=== PATIENT | female | born 1990 ===

== ENCOUNTER 2016-06-28 12:44 | Emergency (ER) | payer OTHER ==
[2016-06-28 12:44] VITALS: BMI 27.9
[2016-06-28 12:56] VITALS: BP 123/66; PULSE 96; RESP 18; TEMP 98; O2SAT 99
--- NOTE | 2016-06-28 13:28 | ED PDOC ---
HPI: General Adult Time Seen by Provider: 06/28/16 13:02 Chief Complaint (Nursing): Flu-like Symptoms Chief Complaint (Provider): Flu-like Symptoms History Per: Patient History/Exam Limitations: no limitations Onset/Duration Of Symptoms: Days (x3 days) Have you had recent travel within the past 21 days to any of the following countries: [place], [place], [place] or [place]?: No Current Symptoms Are (Timing): Still Present Severity: Moderate Additional Complaint(s): Geno Rivas is a 26 year old female, with a past medical history of pneumonia , who presents to the emergency department with complaints of flu-like symptoms , that the patient has been experiencing for the past 3 days. Associated nasal congestion, a cough, sore throat, bodyaches, chills, and a headache are currently present in which the patient has been taking Theraflu and Tylenol for ; however, it has been providing her no relief, prompting her visit to the emergency department. Denies shortness of breath, chest pain, nausea, vomiting, or diarrhea. Of note, patient's son is currently taking antibiotics for a throat infection. PMD: Clinic, Non [facility] Provider Past Medical History Reviewed: Historical Data, Nursing Documentation, Vital Signs Vital Signs: Last Vital Signs Temp 98.0 F 06/28/16 12:53 Pulse 96 H 06/28/16 12:53 Resp 18 06/28/16 12:53 BP 123/66 06/28/16 12:53 Pulse Ox 99 06/28/16 14:18 - Medical History PMH: Anxiety, Pneumonia Other PMH: Urinary Tract Infection - Surgical History Surgical History: (x2) Other surgeries: Tubal Ligation - Family History Family History: States: No Known Family Hx - Social History Alcohol: Occasional - Home Medications Home Medications: Ambulatory Orders Medication Instructions Recorded Ibuprofen [Motrin] 600 mg PO Q6 #20 tab 05/27/16 Benzonatate [Tessalon Perle] 100 mg PO Q8 PRN #30 capsule 06/28/16 Fluticasone Propionate [Flonase] 2 spr NS DAILY PRN #1 bottle 06/28/16 - Allergies Allergies/Adverse Reactions: Allergies Allergy/AdvReac Type Severity Reaction Status Date / Time No Known Allergies Allergy Verified 05/27/16 12:33 Review of Systems ROS Statement: Except As Marked, All Systems Reviewed And Found Negative Constitutional: Positive for: Fever, Chills, Malaise (myalgia, "body aches") ENT: Positive for: Nose Congestion, Throat Pain Cardiovascular: Negative for: Chest Pain Respiratory: Positive for: Cough. Negative for: Shortness of Breath Gastrointestinal: Negative for: Nausea, Vomiting, Diarrhea Neurological: Positive for: Headache Physical Exam - Reviewed Nursing Documentation Reviewed: Yes Vital Signs Reviewed: Yes - Physical Exam Appears: Positive for: Well, Non-toxic, No Acute Distress Head Exam: Positive for: ATRAUMATIC, NORMAL INSPECTION, NORMOCEPHALIC Skin: Positive for: Normal Color, Warm. Negative for: Rash Eye Exam: Positive for: EOMI, Normal appearance, PERRL ENT: Positive for: Nasal Congestion. Negative for: Sinus Pain/Drainage, Pharyngeal Erythema, Tonsillar Exudate, Tonsillar Swelling Respiratory: Positive for: Normal Breath Sounds. Negative for: Respiratory Distress Neurologic/Psych: Positive for: Alert, Oriented - ECG O2 Sat by Pulse Oximetry: 99 (RA) Pulse Ox Interpretation: Normal - Progress ED Course And Treament: Rapid strep: negative. Pt. instructed to do warm salt gargles and drink plenty of fluids. Medical Decision Making Medical Decision Makin:02 Initial Impression: URI vs. Strep Initial Plan: * Rapid Strep Group A Antigen * Reevaluation Scribe Attestation: Documented by Albert Pepper, acting as a scribe for OSMAN Mccord. Provider Scribe Attestation: All medical record entries made by the Scribe were at my direction and personally dictated by me. I have reviewed the chart and agree that the record accurately reflects my personal performance of the history, physical exam, medical decision making, and the department course for this patient. I have also personally directed, reviewed, and agree with the discharge instructions and disposition. Disposition - Clinical Impression Clinical Impression: URI (upper respiratory infection) - Patient ED Disposition Is Patient to be Admitted: No - Disposition Disposition: Routine/Home Disposition Time: 14:24 Condition: STABLE Prescriptions: Fluticasone Propionate [Flonase] 2 spr NS DAILY PRN #1 bottle PRN Reason: Allergy Symptoms Benzonatate [Tessalon Perle] 100 mg PO Q8 PRN #30 capsule PRN Reason: Cough Instructions: Upper Respiratory Infection (ED) Forms: [facility] ED School/Work Excuse
== END 2016-06-28 14:44 | disposition home or self-care (01) ==
LOC: H.ER 12:44
DX: J06.9 Acute upper respiratory infection, unspecified (principal); J02.9 Acute pharyngitis, unspecified; F41.9 Anxiety disorder, unspecified; R51 Headache

== ENCOUNTER 2016-07-02 08:45 | Emergency (ER) | payer OTHER ==
[2016-07-02 08:45] VITALS: BMI 27.9
[2016-07-02 08:50] VITALS: BP 104/67; PULSE 86; RESP 20; TEMP 97.9; O2SAT 97
--- NOTE | 2016-07-02 09:18 | ED PDOC ---
HPI: CCC, URI, Sore Throat Time Seen by Provider: 07/02/16 09:09 Chief Complaint (Nursing): Flu-like Symptoms Chief Complaint (Provider): cough History Per: Patient History/Exam Limitations: no limitations Onset/Duration Of Symptoms: Days (x1 week) Current Symptoms Are (Timing): Still Present Location Of Pain: Throat Associated Symptoms: Sore Throat, Cough, Nasal Congestion. denies: Sputum, Nausea, Vomiting, Diarrhea Severity: Mild Additional Complaint(s): Patient is a 26 year old female presents to the ED complaining of dry cough x1 week. Patient was in the ED x4 days ago and was diagnosed with URI and given Rx to go home with. Patient reports Tylenol and Rx did not provide relief. Cough is associated with congestion, body aches, rhinnorhea, sore throat, and frontal forehead pain with cough. Denies nausea, vomiting, diarrhea, and shortness of breath. Chest pain only on cough. No weakness, numbness, tingles. Of note: Patients last strep test was negative. Past Medical History Reviewed: Historical Data, Nursing Documentation, Vital Signs Vital Signs: Last Vital Signs Temp 97.9 F 07/02/16 08:49 Pulse 86 07/02/16 08:49 Resp 20 07/02/16 08:49 BP 104/67 07/02/16 08:49 Pulse Ox 97 07/02/16 09:27 - Medical History PMH: Anxiety, Pneumonia - Surgical History Surgical History: (x2) - Family History Family History: States: Unknown Family Hx - Living Arrangements Living Arrangements: With Family - Social History Current smoker - smoking cessation education provided: No Alcohol: None Drugs: Denies - Home Medications Home Medications: Ambulatory Orders Medication Instructions Recorded Ibuprofen [Motrin] 600 mg PO Q6 #20 tab 05/27/16 Benzonatate [Tessalon Perle] 100 mg PO Q8 PRN #30 capsule 06/28/16 Fluticasone Propionate [Flonase] 2 spr NS DAILY PRN #1 bottle 06/28/16 Azithromycin [Zithromax] 250 mg PO DAILY 5 Days 07/02/16 Ibuprofen [Motrin] 600 mg PO TID 7 Days 07/02/16 - Allergies Allergies/Adverse Reactions: Allergies Allergy/AdvReac Type Severity Reaction Status Date / Time No Known Allergies Allergy Verified 05/27/16 12:33 Review of Systems ROS Statement: Except As Marked, All Systems Reviewed And Found Negative Constitutional: Positive for: Other (body aches) ENT: Positive for: Nose Discharge, Nose Congestion, Throat Pain Cardiovascular: Positive for: Chest Pain. Negative for: Edema, Light Headedness Respiratory: Positive for: Cough. Negative for: Shortness of Breath, Sputum Gastrointestinal: Negative for: Nausea, Vomiting, Diarrhea Musculoskeletal: Positive for: Other (bodyaches) Neurological: Negative for: Weakness Physical Exam - Reviewed Nursing Documentation Reviewed: Yes Vital Signs Reviewed: Yes - Physical Exam Appears: Positive for: Well, Non-toxic, No Acute Distress Head Exam: Positive for: ATRAUMATIC, NORMAL INSPECTION, NORMOCEPHALIC Skin: Positive for: Normal Color, Warm, DRY Eye Exam: Positive for: Normal appearance, EOMI, PERRL ENT: Positive for: Nasal Congestion, Tonsillar Exudate (b/l), Other (no uvula deveation). Negative for: Pharyngeal Erythema Neck: Positive for: Normal, Painless ROM, Supple Cardiovascular/Chest: Positive for: Regular Rate, Rhythm. Negative for: Gallop , Murmur Respiratory: Positive for: Normal Breath Sounds. Negative for: Accessory Muscle Use, Rhonchi, Respiratory Distress Gastrointestinal/Abdominal: Positive for: Normal Exam, Bowel Sounds, Soft. Negative for: Tenderness Back: Positive for: Normal Inspection. Negative for: L CVA Tenderness, R CVA Tenderness Extremity: Positive for: Normal ROM. Negative for: Tenderness, Pedal Edema Neurologic/Psych: Positive for: Alert, Oriented - ECG O2 Sat by Pulse Oximetry: 97 (RA) Pulse Ox Interpretation: Normal - Progress ED Course And Treament: 917: Stable. AAOx3. Pain controlled. URI. Will give rx zpak as repeat visit and pt. with symptoms for 1 week. Pt. agree to fu. Tolerated PO. Medical Decision Making Medical Decision Making: Time: 9:10 Impression: 26 y/o w/ cough and congestion Plan: UPreg Motrin 600 mg PO Scribe Attestation: Documented by Smita Barrett acting as a scribe for Jimmy Skinner MD. Scribe Attestation: All medical record entries made by the Scribe were at my direction and personally dictated by me. I have reviewed the chart and agree that the record accurately reflects my personal performance of the history, physical exam, medical decision making, and the department course for this patient. I have also personally directed, reviewed, and agree with the discharge instructions and disposition. Disposition - Clinical Impression Clinical Impression: URI (upper respiratory infection) - Patient ED Disposition Is Patient to be Admitted: No Counseled Patient/Family Regarding: Diagnosis, Need For Followup, Rx Given - Disposition Referrals: [facility] [Outside] - 07/03/16 Disposition: Routine/Home Disposition Time: 09:19 Condition: STABLE Additional Instructions: Return if not better in 3 days. Prescriptions: Ibuprofen [Motrin] 600 mg PO TID 7 Days Azithromycin [Zithromax] 250 mg PO DAILY 5 Days Instructions: Upper Respiratory Infection (ED) Forms: [facility] ED School/Work Excuse
== END 2016-07-02 09:33 | disposition home or self-care (01) ==
LOC: H.ER 08:45
DX: J06.9 Acute upper respiratory infection, unspecified (principal); J02.9 Acute pharyngitis, unspecified

== ENCOUNTER 2016-11-25 15:19 | Emergency (ER) | payer OTHER ==
[2016-11-25 15:19] VITALS: BMI 27.9
[2016-11-25 16:01] VITALS: O2SAT 99
[2016-11-25] MEDS ORDERED: Sodium Chloride 0.9% 1,000 ML IV STA (16:03)
--- NOTE | 2016-11-25 16:23 | ED PDOC ---
HPI: Abdomen Time Seen by Provider: 11/25/16 16:03 Chief Complaint (Nursing): Back Pain Chief Complaint (Provider): dysuria, back pain History Per: Patient History/Exam Limitations: no limitations Onset/Duration Of Symptoms: Days (5), Gradual Current Symptoms Are (Timing): Still Present Severity: Moderate Location Of Pain/Discomfort: Suprapubic, Other (b/l flank) Quality Of Discomfort: Sharp Associated Symptoms: Nausea, Loss Of Appetite, Back Pain, Urinary Symptoms. denies: Vomiting Exacerbating Factors: None Alleviating Factors: None Last Bowel Movement: Today Additional Complaint(s): 26yo female states hisatory frequent UTIs, never formally worked up, now presents c/o dysuria associated w b/l flank pain, pelvic pain and chills ongoing and worsening for several days. Denies vaginal discharge. Last UTI several months ago. Abnormal Vaginal Bleeding: No Past Medical History Reviewed: Historical Data Vital Signs: Last Vital Signs Temp 98.1 F 11/25/16 15:59 Pulse 85 11/25/16 15:59 Resp 18 11/25/16 15:59 BP 103/67 11/25/16 15:59 Pulse Ox 99 11/25/16 18:54 - Medical History PMH: Anxiety, Pneumonia Other PMH: UTIs - Surgical History Surgical History: (x2) - Family History Family History: States: Unknown Family Hx - Living Arrangements Living Arrangements: With Family - Social History Current smoker - smoking cessation education provided: No Drugs: Denies - Home Medications Home Medications: Ambulatory Orders Medication Instructions Recorded Ibuprofen [Motrin] 600 mg PO Q6 #20 tab 05/27/16 Benzonatate [Tessalon Perle] 100 mg PO Q8 PRN #30 capsule 06/28/16 Fluticasone Propionate [Flonase] 2 spr NS DAILY PRN #1 bottle 06/28/16 Azithromycin [Zithromax] 250 mg PO DAILY 5 Days 07/02/16 Ibuprofen [Motrin] 600 mg PO TID 7 Days 07/02/16 Ciprofloxacin [Cipro] 500 mg PO BID #14 tab 11/25/16 Naproxen [Naprosyn] 500 mg PO BID PRN #14 tablet 11/25/16 Phenazopyridine HCl [Pyridium] 100 mg PO BID #6 tab 11/25/16 - Allergies Allergies/Adverse Reactions: Allergies Allergy/AdvReac Type Severity Reaction Status Date / Time No Known Allergies Allergy Verified 05/27/16 12:33 Review of Systems ROS Statement: Except As Marked, All Systems Reviewed And Found Negative Constitutional: Positive for: Chills. Negative for: Fever, Malaise Respiratory: Negative for: Cough, Shortness of Breath Gastrointestinal: Positive for: Nausea. Negative for: Vomiting, Abdominal Pain Genitourinary Female: Positive for: Dysuria, Hematuria, Pelvic Pain. Negative for: Vaginal Discharge, Vaginal Bleeding Musculoskeletal: Positive for: Back Pain. Negative for: Neck Pain, Shoulder Pain Skin: Negative for: Rash, Lesions, Jaundice Neurological: Positive for: Dizziness. Negative for: Weakness, Numbness, Headache Psych: Negative for: Anxiety Physical Exam - Reviewed Nursing Documentation Reviewed: Yes Vital Signs Reviewed: Yes - Physical Exam Appears: Positive for: Well, Non-toxic, No Acute Distress Head Exam: Positive for: ATRAUMATIC, NORMAL INSPECTION, NORMOCEPHALIC Skin: Positive for: Normal Color, Warm, DRY Eye Exam: Positive for: EOMI, Normal appearance, PERRL ENT: Positive for: Normal ENT Inspection Neck: Positive for: Normal, Painless ROM Cardiovascular/Chest: Positive for: Regular Rate, Rhythm Respiratory: Positive for: CNT, Normal Breath Sounds Gastrointestinal/Abdominal: Positive for: Bowel Sounds, Soft. Negative for: Tenderness, Guarding Back: Positive for: L CVA Tenderness (L>R), R CVA Tenderness. Negative for: Vertebral Tenderness Extremity: Positive for: Normal ROM Neurologic/Psych: Positive for: Alert, Oriented. Negative for: Motor/Sensory Deficits - Laboratory Results Result Diagrams: 11/25/16 16:20 11/25/16 16:20 - ECG O2 Sat by Pulse Oximetry: 99 Pulse Ox Interpretation: Normal Medical Decision Making Medical Decision Making: Workup initiated for r/o pyelonephritis vs renal colic vs vs PID vs other. IVF, bloodwork, UA, UCx ordered. CT abd/pelv w IV contrast ordered. labs reviewed, no clinically significant findings Imaging reviewed: Accession No. : [id number] Patient Name / ID : BRANDON AUSTIN / [id number] Exam Date : 11/25/2016 18:08:47 ( Approved ) Study Comment : Sex / Age : F / 26Y Creator : Dede Gillespie Dictator : Dede Gillespie Risk Control Representative : Sheet Music Salesperson : Dede Gillespie Approver2 : Report Date : 11/25/2016 18:36:10 My Comment : PROCEDURE: CT Abdomen and Pelvis with contrast HISTORY: flank pain, hematuria, dysuria, r/o pyelo COMPARISON: None. TECHNIQUE: Contrast dose: 95 mL of Omnipaque 300. Axial and reformatted coronal and sagittal CT images of the abdomen and pelvis were obtained after IV contrast administration. Radiation dose: Total exam DLP = 927.4 mGy-cm. This CT exam was performed using one or more of the following dose reduction techniques: Automated exposure control, adjustment of the mA and/or kV according to patient size, and/or use of iterative reconstruction technique. FINDINGS: LOWER THORAX: Unremarkable. LIVER: Unremarkable. No gross lesion or ductal dilatation. GALLBLADDER AND BILE DUCTS: Unremarkable. PANCREAS: Unremarkable. No gross lesion or ductal dilatation. SPLEEN: Unremarkable. ADRENALS: Unremarkable. No mass. KIDNEYS AND URETERS: Unremarkable. No hydronephrosis. No solid mass. No CT evidence of pyelonephritis. VASCULATURE: Unremarkable. No aortic aneurysm. BOWEL: Unremarkable. No obstruction. No gross mural thickening. APPENDIX: No evidence of appendicitis. PERITONEUM: Unremarkable. No free fluid. No free air. LYMPH NODES: Unremarkable. No enlarged lymph nodes. BLADDER: There is moderate circumferential urinary bladder wall thickening suspicious for cystitis. REPRODUCTIVE: There is 3.1 centimeters cystic lesion at the right adnexa. BONES: No acute fracture. OTHER FINDINGS: None. IMPRESSION: No CT evidence of pyelonephritis. No evidence of hydronephrosis or obstructing stone. Moderate circumferential urinary bladder wall thickening suspicious for cystitis. 3.1 centimeters cyst at the right adnexa. Rocephin initiated after culture obtained. Given no fever, lack of leukocytosis, normal kidney function and no evidence of pyelo on imaging, trial outpt Abx indicated. DC w Cipro 500mg BID and followup UCx 48hrs for tailored Abx choice. Needs urology and SENIOR ENERGY TRADER evals given recurrent UTIs. Disposition - Clinical Impression Clinical Impression: Cystitis, UTI (lower urinary tract infection) - Patient ED Disposition Is Patient to be Admitted: No Counseled Patient/Family Regarding: Studies Performed, Diagnosis, Need For Followup, Rx Given - Disposition Referrals: Maciej Haq MD [Medical Doctor] - Macario Lynn DO [Staff Provider] - Disposition: Routine/Home Disposition Time: 18:50 Condition: STABLE Additional Instructions: TAKE ANTIBIOTICS DIRECTED FOLLOWUP URINE CULTURE RESULTS IN 23-48HRS RETURN TO ER FOR ANY WORSE PAIN, FEVER OR NEW /WORSENING SYMPTOMS. DRINK PLENTY OF FLUIDS. AVOID ALCOHOL. SEE SENIOR ENERGY TRADER AND UROLOGY FOR COMPLETE EVALUATION GIVEN REPORT OF RECURRENT UTIs. Prescriptions: Ciprofloxacin [Cipro] 500 mg PO BID #14 tab Naproxen [Naprosyn] 500 mg PO BID PRN #14 tablet PRN Reason: Pain, Moderate (4-7) Phenazopyridine HCl [Pyridium] 100 mg PO BID #6 tab Instructions: Urinary Tract Infection in Women (ED), Dysuria (ED) Forms: [employer] (Arabic)
[2016-11-25 17:00] LABS: BASO % 0.3 % (0.0-2.0); EOS # 0.2 K/uL (0.0-0.7); EOS % 1.6 % (0.0-4.0); HEMATOCRIT 37.6 % (34.0-47.0); LYMPH # 2.6 K/uL (1.0-4.3); MEAN CELL VOLUME 88.4 fl (81.0-99.0); MEAN CORPUSCULAR HEMOGLOBIN 29.5 pg (27.0-31.0); MEAN CORPUSCULAR HGB CONC 33.4 g/dL (33.0-37.0); MEAN PLATELET VOLUME 7.7 fl (7.2-11.7); MONO # 0.6 K/uL (0.0-0.8); NEUT # 7.3 K/uL (1.8-7.0); NEUT % 68.1 % (50.0-75.0); RED CELL DISTRIBUTION WIDTH 14.1 % (11.5-14.5); WHITE BLOOD COUNT 10.7 K/uL (4.8-10.8)
[2016-11-25 17:15] LABS: ALB/GLOB RATIO 1.3 (1.0-2.1); ALKALINE PHOSPHATASE 60 U/L (38-126); ALT/SGPT 32 U/L (9-52); AST/SGOT 25 U/L (14-36); BILIRUBIN,TOTAL 0.7 mg/dl (0.2-1.3); BLOOD UREA NITROGEN 11 mg/dl (7-17); CALCIUM 9.1 mg/dL (8.4-10.2); CARBON DIOXIDE 25 mmol/L (22-30); CHLORIDE 105 mmol/L (98-107); GFR AFRICAN-AMERICAN > 60; GLUCOSE,RANDOM 87 mg/dL (65-105); POTASSIUM 3.8 MMOL/L (3.6-5.0); SODIUM 141 mmol/l (132-148); TOTAL PROTEIN 8.2 G/DL (6.3-8.2)
[2016-11-25] MEDS ORDERED: Sodium Chloride 0.9% 50 ML IV ONE (18:02)
[2016-11-25] MEDS ORDERED: Iohexol 300 100 ML IJ ONE (18:02)
[2016-11-25 18:16] LABS: RBC URINE 180 /hpf (0-3); URINE BACTERIA OCC (<OCC); URINE BILIRUBIN NEGATIVE (NEGATIVE); URINE BLOOD MODERATE (NEGATIVE); URINE COLOR YELLOW (YELLOW); URINE GLUCOSE (UA) NEG (Normal); URINE KETONE NEGATIVE (NEGATIVE); URINE LEUKOCYTE ESTERASE MOD Leu/uL (Negative); URINE PROTEIN 100 mg/dL (NEGATIVE); URINE UROBILINOGEN 0.2-1.0 mg/dL (0.2-1.0); WBC URINE 369 /hpf (0-5)
--- NOTE | 2016-11-25 18:38 | CT ---
PROCEDURE: CT Abdomen and Pelvis with contrast HISTORY: flank pain, hematuria, dysuria, r/o pyelo COMPARISON: None. TECHNIQUE: Contrast dose: 95 mL of Omnipaque 300. Axial and reformatted coronal and sagittal CT images of the abdomen and pelvis were obtained after IV contrast administration. Radiation dose: Total exam DLP = 927.4 mGy-cm. This CT exam was performed using one or more of the following dose reduction techniques: Automated exposure control, adjustment of the mA and/or kV according to patient size, and/or use of iterative reconstruction technique. FINDINGS: LOWER THORAX: Unremarkable. LIVER: Unremarkable. No gross lesion or ductal dilatation. GALLBLADDER AND BILE DUCTS: Unremarkable. PANCREAS: Unremarkable. No gross lesion or ductal dilatation. SPLEEN: Unremarkable. ADRENALS: Unremarkable. No mass. KIDNEYS AND URETERS: Unremarkable. No hydronephrosis. No solid mass. No CT evidence of pyelonephritis. VASCULATURE: Unremarkable. No aortic aneurysm. BOWEL: Unremarkable. No obstruction. No gross mural thickening. APPENDIX: No evidence of appendicitis. PERITONEUM: Unremarkable. No free fluid. No free air. LYMPH NODES: Unremarkable. No enlarged lymph nodes. BLADDER: There is moderate circumferential urinary bladder wall thickening suspicious for cystitis. REPRODUCTIVE: There is 3.1 centimeters cystic lesion at the right adnexa. BONES: No acute fracture. OTHER FINDINGS: None. IMPRESSION: No CT evidence of pyelonephritis. No evidence of hydronephrosis or obstructing stone. Moderate circumferential urinary bladder wall thickening suspicious for cystitis. 3.1 centimeters cyst at the right adnexa.
[2016-11-25] MEDS ORDERED: cefTRIAXone (Rocephin) 1 gm Inj ONE (19:29)
[2016-11-25 21:18] VITALS: BP 122/81; PULSE 81; RESP 16; TEMP 98.2
== END 2016-11-25 21:00 | disposition home or self-care (01) ==
LOC: H.ER 15:19
DX: N39.0 Urinary tract infection, site not specified (principal); N30.90 Cystitis, unspecified without hematuria
CPT/HCPCS: 74177; 80053; 81003; 81025; 85025; 87086; 87181; 96361; 96365; 99284; J0696; J1885; J7040; Q9967

== ENCOUNTER 2017-01-12 09:37 | Emergency (ER) | payer OTHER ==
[2017-01-12 09:51] VITALS: BP 109/66; PULSE 100; RESP 16; TEMP 98.9
[2017-01-12 09:52] VITALS: BMI 30.5
[2017-01-12 10:03] VITALS: O2SAT 98
--- NOTE | 2017-01-12 10:52 | ED PDOC ---
HPI: General Adult Time Seen by Provider: 01/12/17 10:13 Chief Complaint (Nursing): Cough, Cold, Congestion Chief Complaint (Provider): Cough, Cold, Congestion History Per: Patient History/Exam Limitations: no limitations Additional Complaint(s): Geno Rivas is a 26 year old female that presents to the ED with a chief complaint of allergy-like symptoms including nasal congestion, sinus pressure, dry cough, and fatigue. Patient reports that she typically has symptoms like this during this time of the year. She denies any fever, vomiting, hemoptysis, of headache. Past Medical History Reviewed: Historical Data, Nursing Documentation, Vital Signs Vital Signs: Last Vital Signs Temp 98.9 F 01/12/17 09:51 Pulse 100 H 01/12/17 09:51 Resp 16 01/12/17 09:51 BP 109/66 01/12/17 09:51 Pulse Ox 98 01/12/17 10:01 - Medical History PMH: Anxiety, Pneumonia - Surgical History Surgical History: No Surg Hx, (x2) - Family History Family History: States: Unknown Family Hx - Social History Current smoker - smoking cessation education provided: No - Home Medications Home Medications: Ambulatory Orders Medication Instructions Recorded Ibuprofen [Motrin] 600 mg PO Q6 #20 tab 05/27/16 Benzonatate [Tessalon Perle] 100 mg PO Q8 PRN #30 capsule 06/28/16 Fluticasone Propionate [Flonase] 2 spr NS DAILY PRN #1 bottle 06/28/16 Azithromycin [Zithromax] 250 mg PO DAILY 5 Days tab 07/02/16 Ibuprofen [Motrin] 600 mg PO TID 7 Days tab 07/02/16 Ciprofloxacin [Cipro] 500 mg PO BID #14 tab 11/25/16 Naproxen [Naprosyn] 500 mg PO BID PRN #14 tablet 11/25/16 Phenazopyridine HCl [Pyridium] 100 mg PO BID #6 tab 11/25/16 Fluticasone Propionate [Flonase 1 spray NS DAILY #1 spray.susp 01/12/17 Allergy Relief] Ibuprofen [Motrin Tab] 600 mg PO Q6 PRN #15 tab 01/12/17 Loratadine [Claritin] 10 mg PO DAILY #10 tab 01/12/17 Promethazine [Phenergan Syrup] 5 ml PO QID PRN #100 dose 01/12/17 - Allergies Allergies/Adverse Reactions: Allergies Allergy/AdvReac Type Severity Reaction Status Date / Time No Known Allergies Allergy Verified 05/27/16 12:33 Review of Systems Constitutional: Positive for: Other (Fatigue). Negative for: Fever ENT: Positive for: Nose Congestion, Other (Sinus pressure) Respiratory: Positive for: Cough (dry cough). Negative for: Hemoptysis Gastrointestinal: Negative for: Vomiting Neurological: Negative for: Headache Physical Exam - Reviewed Nursing Documentation Reviewed: Yes Vital Signs Reviewed: Yes - Physical Exam Appears: Positive for: Non-toxic, No Acute Distress Head Exam: Positive for: ATRAUMATIC, NORMOCEPHALIC Skin: Positive for: Normal Color, Warm Eye Exam: Positive for: EOMI, Normal appearance, PERRL ENT: Positive for: TM Is/Are (Right TM is occluded due to cerumen. Left TM is normal. ), Other (Left nare turbinates mildly erythematous and inflamed. Thorat is mildly erythematous. ). Negative for: Normal ENT Inspection Cardiovascular/Chest: Positive for: Regular Rate, Rhythm. Negative for: Murmur Respiratory: Positive for: Normal Breath Sounds. Negative for: Wheezing Gastrointestinal/Abdominal: Positive for: Normal Exam, Soft Back: Positive for: Normal Inspection. Negative for: L CVA Tenderness, R CVA Tenderness Extremity: Positive for: Normal ROM. Negative for: Deformity, Swelling Neurologic/Psych: Positive for: Alert, Oriented. Negative for: Motor/Sensory Deficits - ECG O2 Sat by Pulse Oximetry: 98 (RA) Pulse Ox Interpretation: Normal Medical Decision Making Medical Decision Making: Impression: Nasal Congestion/Allergic Rhinitis Plan: * Discussed cerumen management of right ear, will give trial of allergy mediation medications. Patient advised to follow up with PMD and is stable for discharge home. Scribe Attestation: Documented by Candis Pierce, acting as a scribe for Leo Stark III, DO. Provider Scribe Attestation: All medical record entries made by the Scribe were at my direction and personally dictated by me. I have reviewed the chart and agree that the record accurately reflects my personal performance of the history, physical exam, medical decision making, and the department course for this patient. I have also personally directed, reviewed, and agree with the discharge instructions and disposition. Disposition - Clinical Impression Clinical Impression: Nasal congestion, Allergic rhinitis - Disposition Referrals: Edgar Nicholas MD [Staff Provider] - Disposition Time: 10:30 Condition: STABLE Additional Instructions: Use medications as directed. Prescriptions: Fluticasone Propionate [Flonase Allergy Relief] 1 spray NS DAILY #1 spray.susp Ibuprofen [Motrin Tab] 600 mg PO Q6 PRN #15 tab PRN Reason: Pain, Moderate (4-7) Loratadine [Claritin] 10 mg PO DAILY #10 tab Promethazine [Phenergan Syrup] 5 ml PO QID PRN #100 dose PRN Reason: Cough Instructions: Allergic Rhinitis (ED), Allergies (ED) Forms: [employer] (Luxembourgish)
== END 2017-01-12 10:49 | disposition home or self-care (01) ==
LOC: H.ER 09:37
DX: J30.9 Allergic rhinitis, unspecified (principal); F41.9 Anxiety disorder, unspecified

== ENCOUNTER 2017-01-31 08:44 | Emergency (ER) | payer OTHER ==
[2017-01-31 08:44] VITALS: BMI 30.5
[2017-01-31 08:53] VITALS: O2SAT 96
[2017-01-31] MEDS ORDERED: Sodium Chloride 0.9% 1,000 ML IV STA (09:19)
[2017-01-31 09:52] LABS: VENOUS BLOOD GAS BASE EXCESS -0.3 mmol/L (0.0-2.0); VENOUS BLOOD GAS PCO2 38 mmHg (40-60); VENOUS BLOOD PH 7.41 (7.32-7.43)
[2017-01-31 09:57] LABS: BASO % 0.2 % (0.0-2.0); EOS % 0.1 % (0.0-4.0); HEMATOCRIT 35.8 % (34.0-47.0); LYMPH % 7.7 % (20.0-40.0); MEAN CORPUSCULAR HEMOGLOBIN 29.5 pg (27.0-31.0); MEAN PLATELET VOLUME 7.1 fl (7.2-11.7); MONO # 0.9 K/uL (0.0-0.8); MONO % 6.8 % (0.0-10.0); NEUT # 11.4 K/uL (1.8-7.0); NEUT % 85.2 % (50.0-75.0); PLATELET COUNT 183 K/uL (130-400); RED CELL DISTRIBUTION WIDTH 13.9 % (11.5-14.5); WHITE BLOOD COUNT 13.3 K/uL (4.8-10.8)
[2017-01-31 10:01] LABS: RBC URINE 5 /hpf (0-3); URINE BILIRUBIN NEGATIVE (NEGATIVE); URINE BLOOD SMALL (NEGATIVE); URINE COLOR AMBER (YELLOW); URINE GLUCOSE (UA) NEG (Normal); URINE KETONE 20 mg/dL (NEGATIVE); URINE LEUKOCYTE ESTERASE NEG Leu/uL (Negative); URINE PROTEIN 100 mg/dL (NEGATIVE); URINE UROBILINOGEN 0.2-1.0 mg/dL (0.2-1.0)
[2017-01-31 10:07] LABS: BILIRUBIN,TOTAL 0.9 mg/dl (0.2-1.3); CALCIUM 8.9 mg/dL (8.4-10.2); CARBON DIOXIDE 22 mmol/L (22-30); CHLORIDE 107 mmol/L (98-107); GFR AFRICAN-AMERICAN > 60; GLUCOSE,RANDOM 128 mg/dL (65-105); SODIUM 139 mmol/l (132-148)
--- NOTE | 2017-01-31 10:20 | ED PDOC ---
HPI: General Adult Time Seen by Provider: 01/31/17 09:10 Chief Complaint (Nursing): Flu-like Symptoms Chief Complaint (Provider): fever, throat pain History Per: Patient History/Exam Limitations: no limitations Onset/Duration Of Symptoms: Days (2) Current Symptoms Are (Timing): Still Present Severity: Moderate Additional Complaint(s): 27yo female c/o fever, body aches, throat pain, diarrhea and back pain with urinary frequency ongoing and worsening over last 2-3 days. Denies drooling, rash, neck pain or syncope. Admits to mild headache. Has a history of frequent UTIs. Past Medical History Reviewed: Historical Data, Nursing Documentation, Vital Signs Vital Signs: Last Vital Signs Temp 102.5 F H 01/31/17 10:04 Pulse 143 H 01/31/17 08:51 Resp 20 01/31/17 08:51 BP 116/69 01/31/17 08:51 Pulse Ox 96 01/31/17 10:22 - Medical History PMH: Anxiety, Pneumonia - Surgical History Surgical History: (x2) - Family History Family History: States: Unknown Family Hx - Social History Current smoker - smoking cessation education provided: No - Home Medications Home Medications: Ambulatory Orders Medication Instructions Recorded Ibuprofen [Motrin Tab] 600 mg PO Q6 PRN #15 tab 01/12/17 Amoxicillin/Clavulanate [Augmentin 1 tab PO BID #14 tab 01/31/17 875 MG-125 MG] Naproxen [Naprosyn] 500 mg PO BID PRN #14 tablet 01/31/17 - Allergies Allergies/Adverse Reactions: Allergies Allergy/AdvReac Type Severity Reaction Status Date / Time No Known Allergies Allergy Verified 01/31/17 09:00 Review of Systems Constitutional: Positive for: Fever, Chills, Malaise ENT: Positive for: Throat Pain. Negative for: Ear Discharge Cardiovascular: Negative for: Chest Pain, Palpitations Respiratory: Positive for: Cough. Negative for: Shortness of Breath Gastrointestinal: Positive for: Nausea, Abdominal Pain, Diarrhea. Negative for : Constipation Genitourinary Female: Positive for: Frequency. Negative for: Pelvic Pain Musculoskeletal: Positive for: Other (+body aches). Negative for: Neck Pain, Back Pain Skin: Negative for: Rash, Lesions, Jaundice Neurological: Positive for: Headache. Negative for: Weakness, Numbness, Dizziness Psych: Negative for: Psychosis Physical Exam - Reviewed Nursing Documentation Reviewed: Yes Vital Signs Reviewed: Yes - Physical Exam Appears: Positive for: Well, Non-toxic, No Acute Distress Head Exam: Positive for: ATRAUMATIC, NORMAL INSPECTION, NORMOCEPHALIC Skin: Positive for: Normal Color, Warm, DRY Eye Exam: Positive for: EOMI, Normal appearance, PERRL ENT: Positive for: Pharyngeal Erythema, Tonsillar Exudate, Tonsillar Swelling Neck: Positive for: Normal, Painless ROM Cardiovascular/Chest: Positive for: Regular Rate, Rhythm Respiratory: Positive for: Normal Breath Sounds. Negative for: Respiratory Distress Gastrointestinal/Abdominal: Positive for: Bowel Sounds, Soft. Negative for: Tenderness Back: Positive for: L CVA Tenderness, R CVA Tenderness. Negative for: Muscle Spasm Extremity: Positive for: Normal ROM Neurologic/Psych: Positive for: Alert, Oriented. Negative for: Motor/Sensory Deficits - Laboratory Results Result Diagrams: 01/31/17 09:50 01/31/17 09:50 - ECG O2 Sat by Pulse Oximetry: 96 Medical Decision Making Medical Decision Making: +fever in ED, workup for sepsis/ UTI/ pyelo/ pharyngitis initiated labs reviewed, WBC normal, chem unremarkable, UA +epith cells Pt improved over ED stay. 1pm tolerating full diet without difficulty. Appears well, feels better. DC w augmentin and naprosyn, followup PMD/ ENT Disposition - Clinical Impression Clinical Impression: Tonsillitis - Patient ED Disposition Is Patient to be Admitted: No Counseled Patient/Family Regarding: Studies Performed, Diagnosis, Need For Followup, Rx Given - Disposition Referrals: Edgar Nicholas MD [Staff Provider] - Disposition: Routine/Home Disposition Time: 13:02 Condition: STABLE Additional Instructions: Return to ER for any new or worsening symptoms. Take medications as directed. Prescriptions: Amoxicillin/Clavulanate [Augmentin 875 MG-125 MG] 1 tab PO BID #14 tab Naproxen [Naprosyn] 500 mg PO BID PRN #14 tablet PRN Reason: Pain, Moderate (4-7) Instructions: Tonsillitis (ED) Forms: [employer] (Ukrainian)
[2017-01-31 10:22] LABS: ALB/GLOB RATIO 1.2 (1.0-2.1); ALKALINE PHOSPHATASE 54 U/L (38-126); ALT/SGPT 23 U/L (9-52); AST/SGOT 26 U/L (14-36); BLOOD UREA NITROGEN 8 mg/dl (7-17); POTASSIUM 3.8 MMOL/L (3.6-5.0); TOTAL PROTEIN 8.3 G/DL (6.3-8.2)
[2017-01-31 10:41] LABS: NEUTROPHIL 89 % (42-75); TOTAL CELLS COUNTED 100
[2017-01-31] MEDS ORDERED: Dexamethasone 8 MG in Dextrose 5% In Water 50 ML IV ONE (11:15)
[2017-01-31] MEDS ORDERED: Piperacillin/Tazobact 4.5 GM in Sodium Chloride 0.9% 100 ML IVPB ONE (11:30)
[2017-01-31] MEDS ORDERED: Dexamethasone 4 mg/1 ml ONE (11:59)
[2017-01-31 16:03] VITALS: BP 110/70; PULSE 99; RESP 19; TEMP 99.5
== END 2017-01-31 13:35 | disposition home or self-care (01) ==
LOC: H.ER 08:44
DX: J03.90 Acute tonsillitis, unspecified (principal); F41.9 Anxiety disorder, unspecified; Z87.440 Personal history of urinary (tract) infections
CPT/HCPCS: 80053; 81003; 81025; 82803; 85025; 87040; 87086; 96374; 96375; 99283; J1100; J1885; J2405; J2543; J7040

== ENCOUNTER 2017-06-03 08:14 | Emergency (ER) | payer OTHER ==
[2017-06-03 08:14] VITALS: BMI 30.5
[2017-06-03 08:23] VITALS: RESP 18; O2SAT 99
[2017-06-03] MEDS ORDERED: Sodium Chloride 0.9% 1,000 ML IV STA (09:00)
--- NOTE | 2017-06-03 09:02 | ED PDOC ---
HPI: Back Time Seen by Provider: 06/03/17 08:36 Chief Complaint (Nursing): Back Pain Chief Complaint (Provider): Left Flank Pain History Per: Patient History/Exam Limitations: no limitations Onset/Duration Of Symptoms: Days (x2-3) Current Symptoms Are (Timing): Still Present Additional Complaint(s): 27 y/o female with a past medical history of frequent UTIs, who presents to the ED complaining of left flank pain radiating to front with associated dysuria , frequency, chills, and nausea ongoing x2-3 days. PMD: [facility] Past Medical History Reviewed: Historical Data, Nursing Documentation, Vital Signs Vital Signs: Last Vital Signs Temp 98 F 06/03/17 08:21 Pulse 90 06/03/17 08:21 Resp 18 06/03/17 08:21 BP 112/76 06/03/17 08:21 Pulse Ox 99 06/03/17 08:21 - Medical History PMH: Anxiety, Pneumonia - Surgical History Surgical History: (x2) - Family History Family History: States: Unknown Family Hx - Home Medications Home Medications: Ambulatory Orders Medication Instructions Recorded Ibuprofen [Motrin Tab] 600 mg PO Q6 PRN #15 tab 01/12/17 Amoxicillin/Clavulanate [Augmentin 1 tab PO BID #14 tab 01/31/17 875 MG-125 MG] Naproxen [Naprosyn] 500 mg PO BID PRN #14 tablet 01/31/17 Ciprofloxacin HCl [Cipro] 500 mg PO BID #20 tab 06/03/17 Naproxen [Naprosyn] 500 mg PO Q12H #20 tab 06/03/17 - Allergies Allergies/Adverse Reactions: Allergies Allergy/AdvReac Type Severity Reaction Status Date / Time No Known Allergies Allergy Verified 06/03/17 08:20 Review of Systems ROS Statement: Except As Marked, All Systems Reviewed And Found Negative Constitutional: Positive for: Chills Gastrointestinal: Positive for: Nausea, Abdominal Pain (left flank) Genitourinary Female: Positive for: Dysuria, Frequency Musculoskeletal: Positive for: Back Pain (left flank) Physical Exam - Reviewed Nursing Documentation Reviewed: Yes Vital Signs Reviewed: Yes - Physical Exam Appears: Positive for: Non-toxic, No Acute Distress Head Exam: Positive for: ATRAUMATIC, NORMAL INSPECTION, NORMOCEPHALIC Skin: Positive for: Normal Color, Warm, Dry. Negative for: Rash Eye Exam: Positive for: EOMI, Normal appearance, PERRL Neck: Positive for: Normal, Painless ROM, Supple Cardiovascular/Chest: Positive for: Regular Rate, Rhythm. Negative for: Murmur Respiratory: Positive for: Normal Breath Sounds. Negative for: Respiratory Distress Gastrointestinal/Abdominal: Positive for: Soft, Tenderness (LLQ) Back: Positive for: L CVA Tenderness Extremity: Positive for: Normal ROM. Negative for: Pedal Edema, Deformity Neurologic/Psych: Positive for: Alert, Oriented (x3). Negative for: Motor/ Sensory Deficits - Laboratory Results Result Diagrams: 06/03/17 09:20 06/03/17 09:20 - ECG O2 Sat by Pulse Oximetry: 99 (RA) Pulse Ox Interpretation: Normal Medical Decision Making Medical Decision Making: Time: 08:53 Initial Plan: --CT Abdomen and Pelvis --CMP --ED Urine --ED Urine dipstick --Urinalysis --CBC w/ differential --Fluid bolus --Blood culture --Urine culture --Reevaluation Scribe Attestation: Documented by Yrn Hess, acting as a scribe for Jimmy Skinner MD. Provider Scribe Attestation: All medical record entries made by the Scribe were at my direction and personally dictated by me. I have reviewed the chart and agree that the record accurately reflects my personal performance of the history, physical exam, medical decision making, and the department course for this patient. I have also personally directed, reviewed, and agree with the discharge instructions and disposition. Disposition - Clinical Impression Clinical Impression: UTI (urinary tract infection), Back pain - Patient ED Disposition Is Patient to be Admitted: No Counseled Patient/Family Regarding: Studies Performed, Diagnosis, Need For Followup, Rx Given - Disposition Referrals: Jimmy Boland MD [Staff Provider] - Disposition: Routine/Home Disposition Time: 10:26 Condition: FAIR Prescriptions: Ciprofloxacin HCl [Cipro] 500 mg PO BID #20 tab Naproxen [Naprosyn] 500 mg PO Q12H #20 tab Instructions: Urinary Tract Infections in Adults Forms: [employer] (Guyanese)
[2017-06-03 09:28] LABS: BASO % 0.5 % (0.0-2.0); EOS # 0.1 K/uL (0.0-0.7); EOS % 1.6 % (0.0-4.0); HEMOGLOBIN 12.3 g/dL (12.0-16.0); LYMPH # 1.5 K/uL (1.0-4.3); MEAN CELL VOLUME 88.9 fl (81.0-99.0); MEAN CORPUSCULAR HEMOGLOBIN 30.1 pg (27.0-31.0); MEAN CORPUSCULAR HGB CONC 33.8 g/dL (33.0-37.0); MEAN PLATELET VOLUME 7.9 fl (7.2-11.7); MONO # 0.5 K/uL (0.0-0.8); MONO % 8.1 % (0.0-10.0); NEUT # 3.5 K/uL (1.8-7.0); NEUT % 62.8 % (50.0-75.0); NRBC % 0.1 % (0.0-0.0); RBC 4.1 Mil/uL (3.80-5.20); RED CELL DISTRIBUTION WIDTH 13.9 % (11.5-14.5); WHITE BLOOD COUNT 5.6 K/uL (4.8-10.8)
[2017-06-03 09:44] LABS: ALB/GLOB RATIO 1.2 (1.0-2.1); ALBUMIN 4.2 g/dL (3.5-5.0); ALT/SGPT 30 U/L (9-52); AST/SGOT 20 U/L (14-36); BLOOD UREA NITROGEN 11 mg/dl (7-17); CALCIUM 8.6 mg/dL (8.4-10.2); GFR AFRICAN-AMERICAN > 60; GFR NON-AFRICAN AMERICAN > 60
--- NOTE | 2017-06-03 09:53 | CT ---
PROCEDURE: CT Abdomen and Pelvis without intravenous contrast HISTORY: left flank pain COMPARISON: Contrast abdomen and pelvis CT examination 11/25/2016. TECHNIQUE: Helical CT of the abdomen and pelvis was performed without oral or intravenous contrast as per referring physician request. Contrast Dose: None Radiation dose: Total exam DLP = 927.40 mGy-cm. This CT exam was performed using one or more of the following dose reduction techniques: Automated exposure control, adjustment of the mA and/or kV according to patient size, and/or use of iterative reconstruction technique. FINDINGS: LOWER THORAX: A punctate calcified granuloma is again seen the right lower lobe base. Visualized lung bases are otherwise clear. LIVER: Unremarkable. No gross lesion or ductal dilatation. GALLBLADDER AND BILE DUCTS: Unremarkable. PANCREAS: Unremarkable. No gross lesion or ductal dilatation. SPLEEN: Unremarkable. ADRENALS: Unremarkable. No mass. KIDNEYS AND URETERS: No radiodense urolithiasis, obstructive uropathy or perinephric reaction is identified bilaterally. Stable renal contours are identified bilaterally. VASCULATURE: Unremarkable. No aortic aneurysm. BOWEL: Unremarkable. No obstruction. No gross mural thickening. APPENDIX: Unremarkable. Normal appendix. PERITONEUM: Unremarkable. No free fluid. No free air. LYMPH NODES: Unremarkable. No enlarged lymph nodes. BLADDER: Urinary bladder is decompressed with prior pattern of cystitis not excluded currently. REPRODUCTIVE: Right adnexal cyst possibly resolved. BONES: No acute fracture. OTHER FINDINGS: None. IMPRESSION: No radiodense urolithiasis, obstructive uropathy or perinephric reaction bilaterally. Urinary bladder is decompressed and limited in evaluation. Prior pattern of cystitis is difficult to evaluate currently and further clinical correlation is advised. No definitive acute abdominal or pelvic findings are appreciated in this unenhanced CT examination.
[2017-06-03 10:10] LABS: URINE BILIRUBIN NEGATIVE (NEGATIVE); URINE CLARITY SLIGHT-CLOUDY (Clear); URINE COLOR YELLOW (YELLOW); URINE GLUCOSE (UA) NEGATIVE (Normal)
[2017-06-03 10:11] LABS: SQUAMOUS EPITHIAL 3 /hpf (0-5); URINE BACTERIA RARE (<OCC); URINE BLOOD MODERATE (NEGATIVE); URINE LEUKOCYTE ESTERASE MOD Leu/uL (Negative); URINE PROTEIN >=300 mg/dL (NEGATIVE); URINE UROBILINOGEN 0.2 mg/dL (0.2-1.0)
--- NOTE | 2017-06-03 13:01 | US ---
HISTORY: LLQ pain and back pain. LMP 05/23/2017. COMPARISON: None available. TECHNIQUE: Transvaginal only. Real -time technique with 2D, duplex and color Doppler FINDINGS: UTERUS: Measures 3 x 5.1 x 7.2 cm. Heterogeneous echo characteristics without focal abnormality No fibroid or other mass lesion seen. ENDOMETRIUM: Measures 4.4 mm in diameter. No ultrasound findings to suggest gestational sac, fluid, debris, mass or polyp or other pathologic process within the endometrium. CERVIX: No cervical abnormality identified. RIGHT OVARY: Measures 2.5 x 2.5 x 3 cm. No solid mass. Normal flow. Multiple subcentimeter follicles. LEFT OVARY: Measures 2 x 3.5 x 3.9 cm. No solid mass. Normal flow. Multiple subcentimeter follicles. FREE FLUID: No significant free fluid noted. OTHER FINDINGS: None. IMPRESSION: No significant or acute findings to account for/ related to the clinical presentation. Additional benign and/or incidental findings described above.
[2017-06-03 14:12] VITALS: BP 128/67; PULSE 76; TEMP 97.9
== END 2017-06-03 14:12 | disposition home or self-care (01) ==
LOC: H.ER 08:14
DX: N39.0 Urinary tract infection, site not specified (principal); F41.9 Anxiety disorder, unspecified
CPT/HCPCS: 74176; 76830; 80053; 81003; 81025; 85025; 87040; 87086; 96374; 99283; J1885; J7040

== ENCOUNTER 2017-06-13 06:20 | Day surgery (SDC) | payer OTHER ==
[2017-06-13 07:00] VITALS: RESP 18
[2017-06-13 07:05] LABS: HEMOGLOBIN 12.7 g/dL (12.0-16.0); MEAN CELL VOLUME 88.9 fl (81.0-99.0); MEAN CORPUSCULAR HEMOGLOBIN 29.9 pg (27.0-31.0); MEAN CORPUSCULAR HGB CONC 33.6 g/dL (33.0-37.0); RBC 4.26 Mil/uL (3.80-5.20); RED CELL DISTRIBUTION WIDTH 13.9 % (11.5-14.5)
[2017-06-13] MEDS ORDERED: Bupivacaine 0.5% Inj(30mL) ONE (07:36)
[2017-06-13] MEDS ORDERED: cefOXitin IV 1 gm in Dextrose 1 GM/50 ML BAG IVPB ONE (07:36)
[2017-06-13] MEDS ORDERED: Propofol 10 mg/ml Inj (20 ML) ONE (07:48)
[2017-06-13] MEDS ORDERED: Rocuronium 10 mg/ml (5 ml) ONE (07:49)
[2017-06-13] MEDS ORDERED: Lidocaine 4% (Laryng-O-Jet) Kit MM ONE (07:49)
[2017-06-13] MEDS ORDERED: Midazolam 2 MG/2 ML VIAL ONE (07:49)
[2017-06-13] MEDS ORDERED: Dexamethasone 4 mg/1 ml ONE (08:52)
[2017-06-13] MEDS ORDERED: Lactated Ringer's 1,000 ML IV ONE ×2 (09:15→09:16)
[2017-06-13] MEDS ORDERED: Sodium Chloride 0.9% 1,000 ML IV ONE (09:20)
[2017-06-13] MEDS: HYDROmorphone 0.5 mg/0.5 ml ISec IVP PRN ×2 (10:05→10:20)
[2017-06-13] MEDS ORDERED: Morphine 4 MG/ML VIAL IVP PRN (10:27)
[2017-06-13] MEDS ORDERED: DiphenhydrAMINE 50 mg/ml Inj IVP STA (13:30)
[2017-06-13] MEDS ORDERED: DiphenhydrAMINE 50 mg/ml Inj IVP ONE (14:15)
[2017-06-13 16:38] VITALS: BP 105/63; PULSE 82; TEMP 98.2; O2SAT 99
--- NOTE | 2017-06-24 06:58 | OP ---
PROCEDURE DATE: 06/13/2017 PREOPERATIVE DIAGNOSIS: Pelvic pain. POSTOPERATIVE DIAGNOSES: Pelvic pain plus massive pelvic adhesions. PROCEDURE: Laparoscopy with lysis of adhesions. SURGEON: Jimmy Boland MD ELECTRONIC PUBLISHER: Owen Agrawal MD ANESTHESIA ADMINISTERED BY: Dru Sweeney MD FINDINGS: Massive bilateral pelvic adhesions. DESCRIPTION OF PROCEDURE: With the patient in the dorsal lithotomy position under general anesthesia, the patient was prepped and draped in the usual sterile manner. Dr. Agrawal assisting in the preparation of the surgery today. The Espinosa was introduced and bladder was emptied. Following this, the uterine manipulator was put into the cervix after dilating the cervix. I then moved to the abdomen where the abdomen was tented and a Veress needle introduced and inflating the abdomen to about 4 L of CO2. After this was done, 1 cm incision was made below the umbilicus, #10 trocar was introduced. Following that, the pelvic cavity was visualized with bilateral adhesions, I then used #10 trocar on left of midline and also #10 on the right side and the adhesions was located and lysed sequentially maintaining hemostasis. This was done on the left side, also on the right side, and hemostasis was maintained. After lysis of the adhesions were taken place, the pelvic cavity was irrigated until clean. Following this, the instruments were removed from the pelvic and abdominal cavity after deflating the abdomen. After this was done, the incisions were closed with 2-0 Vicryl and Dermabond was used to close the incisions. We then removed the instruments from the vagina. Dr. Agrawal assisted each way of the procedure and also during the each way of the closure. He was present from beginning of the surgery to the end. Blood loss was minimal. The patient tolerated the procedure well and was in satisfactory condition on the way to recovery room. Jimmy Boland MD
== END 2017-06-13 16:40 | disposition home or self-care (01) ==
LOC: H.OPSURG 06:20
PROVIDERS: ATTEND Specialist
DX: N73.6 Female pelvic peritoneal adhesions (postinfective) (principal); R10.2 Pelvic and perineal pain; F41.9 Anxiety disorder, unspecified
CPT/HCPCS: 36415; 44180; 85027; 86850; 86900; J0694; J1100; J1170; J1200; J1885; J2250; J2270; J2405; J2704; J3010; J7030; J7040; J7120

== ENCOUNTER 2017-08-12 08:37 | Emergency (ER) | payer OTHER ==
[2017-08-12 08:38] VITALS: BMI 30.5
[2017-08-12 09:13] VITALS: RESP 16
[2017-08-12] MEDS ORDERED: Sodium Chloride 0.9% 1,000 ML IV STA (09:28)
--- NOTE | 2017-08-12 10:16 | ED PDOC ---
HPI: General Adult Time Seen by Provider: 08/12/17 08:40 Chief Complaint (Nursing): ENT Problem Chief Complaint (Provider): Throat pain History Per: Patient History/Exam Limitations: no limitations Onset/Duration Of Symptoms: Days (yesterday) Current Symptoms Are (Timing): Still Present Additional Complaint(s): 27 year old female presented to the ED complaining of throat pain since yesterday. Patient reports having diarrhea, nausea, dry cough, and feeling hot which she attributed to a fever. She indicates taking tylenol yesterday and this morning. PCP: none provided Past Medical History Reviewed: Historical Data, Nursing Documentation, Vital Signs Vital Signs: Last Vital Signs Temp 97.2 F L 08/12/17 12:06 Pulse 88 08/12/17 12:06 Resp 16 08/12/17 12:06 BP 110/69 08/12/17 12:06 Pulse Ox 99 08/12/17 12:06 - Medical History PMH: Anxiety, Depression, Pneumonia Denies: Chronic Kidney Disease - Surgical History Surgical History: (x2) - Family History Family History: States: Unknown Family Hx - Social History Current smoker - smoking cessation education provided: No Alcohol: Occasional Drugs: Denies - Home Medications Home Medications: Ambulatory Orders Medication Instructions Recorded Ibuprofen [Motrin Tab] 800 mg PO Q8 06/13/17 Amoxicillin 500 mg PO BID #14 tablet 08/12/17 - Allergies Allergies/Adverse Reactions: Allergies Allergy/AdvReac Type Severity Reaction Status Date / Time No Known Allergies Allergy Verified 06/13/17 06:32 Review of Systems ROS Statement: Except As Marked, All Systems Reviewed And Found Negative Constitutional: Positive for: Fever ENT: Positive for: Throat Pain Cardiovascular: Negative for: Chest Pain Respiratory: Positive for: Cough (dry) Gastrointestinal: Positive for: Nausea, Diarrhea. Negative for: Vomiting, Abdominal Pain Physical Exam - Reviewed Nursing Documentation Reviewed: Yes Vital Signs Reviewed: Yes - Physical Exam Appears: Positive for: Non-toxic, No Acute Distress Head Exam: Positive for: ATRAUMATIC, NORMAL INSPECTION, NORMOCEPHALIC Skin: Positive for: Normal Color, Warm, Dry Eye Exam: Positive for: Normal appearance ENT: Positive for: Tonsillar Swelling (and erythematous). Negative for: Tonsillar Exudate Neck: Positive for: Normal, Painless ROM Cardiovascular/Chest: Positive for: Regular Rate, Rhythm. Negative for: Murmur Respiratory: Positive for: Normal Breath Sounds. Negative for: Wheezing, Respiratory Distress Gastrointestinal/Abdominal: Positive for: Normal Exam, Soft. Negative for: Tenderness Back: Positive for: Normal Inspection. Negative for: L CVA Tenderness, R CVA Tenderness Extremity: Positive for: Normal ROM Neurologic/Psych: Positive for: Alert, Oriented. Negative for: Motor/Sensory Deficits - Laboratory Results Result Diagrams: 08/12/17 10:18 08/12/17 10:18 - ECG O2 Sat by Pulse Oximetry: 98 (RA) Pulse Ox Interpretation: Normal Medical Decision Making Medical Decision Making: Initial Impression: fever, sore throat, rule out strep Initial Plan: Beta HCG CMP CBC Sodium chloride 1000mL IV Toradol 30mg IV Ondansetron 4mg PO Rapid Strep 11:35 Results for rapid strep were positive. Patient will be discharged with amoxicillin po. pt tolerating po, awake and alert, airway intact. Scribe Attestation: Documented by Aj Spain acting as a scribe for Francesco Cummins MD. Provider Scribe Attestation: All medical record entries made by the Scribe were at my direction and personally dictated by me. I have reviewed the chart and agree that the record accurately reflects my personal performance of the history, physical exam, medical decision making, and the department course for this patient. I have also personally directed, reviewed, and agree with the discharge instructions and disposition. Disposition - Clinical Impression Clinical Impression: Strep pharyngitis - Patient ED Disposition Is Patient to be Admitted: No Counseled Patient/Family Regarding: Studies Performed, Diagnosis, Need For Followup - Disposition Referrals: [facility] [Outside] [facility] [Outside] Disposition: Routine/Home Disposition Time: 11:00 Condition: IMPROVED Additional Instructions: follow up with your primary doctor in 1-2 days return to the ED with any worsening or concerning symptoms Prescriptions: Amoxicillin 500 mg PO BID #14 tablet Instructions: Sore Throat, Adult (DC), Strep Throat (DC) Forms: [employer] (Luxembourgish), [facility] ED School/Work Excuse
[2017-08-12 10:27] LABS: BASO % 0.4 % (0.0-2.0); EOS # 0.2 K/uL (0.0-0.7); EOS % 2.2 % (0.0-4.0); HEMOGLOBIN 12.3 g/dL (12.0-16.0); LYMPH # 1.1 K/uL (1.0-4.3); MEAN CORPUSCULAR HEMOGLOBIN 30.9 pg (27.0-31.0); MEAN CORPUSCULAR HGB CONC 35.1 g/dL (33.0-37.0); MEAN PLATELET VOLUME 7.9 fl (7.2-11.7); MONO # 0.6 K/uL (0.0-0.8); MONO % 7.6 % (0.0-10.0); NEUT # 6.5 K/uL (1.8-7.0); NEUT % 76.8 % (50.0-75.0); RED CELL DISTRIBUTION WIDTH 14.2 % (11.5-14.5); WHITE BLOOD COUNT 8.5 K/uL (4.8-10.8)
[2017-08-12 10:45] LABS: ALB/GLOB RATIO 1.1 (1.0-2.1); ALBUMIN 3.8 g/dL (3.5-5.0); CALCIUM 8.3 mg/dL (8.4-10.2); GFR AFRICAN-AMERICAN > 60; GFR NON-AFRICAN AMERICAN > 60
[2017-08-12 10:49] LABS: ALT/SGPT 25 U/L (9-52); AST/SGOT 26 U/L (14-36); BLOOD UREA NITROGEN 9 mg/dl (7-17)
[2017-08-12 12:06] VITALS: BP 110/69; PULSE 88; TEMP 97.2
[2017-08-14 11:04] VITALS: O2SAT 98
== END 2017-08-12 12:07 | disposition home or self-care (01) ==
LOC: H.ER 08:37
DX: J02.0 Streptococcal pharyngitis (principal); F32.9 Major depressive disorder, single episode, unspecified; F41.9 Anxiety disorder, unspecified
CPT/HCPCS: 80053; 81025; 84702; 85025; 87430; 96374; 99282; J1885; J7030

== ENCOUNTER 2017-10-06 14:12 | Emergency (ER) | payer OTHER ==
[2017-10-06 14:12] VITALS: BMI 30.5
[2017-10-06 14:48] VITALS: BP 101/67; PULSE 76; RESP 20; TEMP 98.1; O2SAT 100
--- NOTE | 2017-10-06 15:25 | ED PDOC ---
HPI: CCC, URI, Sore Throat Time Seen by Provider: 10/06/17 14:55 Chief Complaint (Nursing): ENT Problem Chief Complaint (Provider): Decreased hearing right ear History Per: Patient History/Exam Limitations: no limitations Ear Symptoms: Right: Decreased Hearing Additional Complaint(s): 27 yo female with no medical problems presents with decreased hearing in the right ear x 4 years, worse for 3 days. Pt reports intermittent discomfort for a few days. Pt states she went to clean her ear with Q-tip and saw dry blood with prompted visit. No fever/chills. Pt has not seen specialist yet for decreased hearing. PMD: [facility] Past Medical History Reviewed: Historical Data, Nursing Documentation, Vital Signs Vital Signs: Last Vital Signs Temp 98.1 F 10/06/17 14:45 Pulse 76 10/06/17 14:45 Resp 20 10/06/17 14:45 BP 101/67 10/06/17 14:45 Pulse Ox 100 10/06/17 14:45 - Medical History PMH: Anxiety, Depression, Pneumonia Denies: Chronic Kidney Disease - Surgical History Surgical History: (x2) - Family History Family History: States: Unknown Family Hx - Living Arrangements Living Arrangements: With Family - Social History Current smoker - smoking cessation education provided: No - Home Medications Home Medications: Ambulatory Orders Medication Instructions Recorded Ibuprofen [Motrin Tab] 800 mg PO Q8 06/13/17 Amoxicillin 500 mg PO BID #14 tablet 08/12/17 Carbamide Peroxide [Debrox Ear 10 drop .ROUTE BID #1 bottle 10/06/17 Drops] - Allergies Allergies/Adverse Reactions: Allergies Allergy/AdvReac Type Severity Reaction Status Date / Time No Known Allergies Allergy Verified 06/13/17 06:32 Review of Systems ROS Statement: Except As Marked, All Systems Reviewed And Found Negative Constitutional: Negative for: Fever, Chills ENT: Positive for: Ear Pain Skin: Negative for: Other Physical Exam - Reviewed Nursing Documentation Reviewed: Yes Vital Signs Reviewed: Yes - Physical Exam Appears: Positive for: Well, Non-toxic, No Acute Distress Head Exam: Positive for: ATRAUMATIC, NORMAL INSPECTION, NORMOCEPHALIC Skin: Positive for: Warm. Negative for: Normal Color Eye Exam: Positive for: Normal appearance ENT: Positive for: Other (Cerumen impraction - Right ). Negative for: Normal ENT Inspection Neck: Positive for: Normal, Painless ROM Respiratory: Negative for: Accessory Muscle Use, Respiratory Distress Back: Positive for: Normal Inspection Extremity: Positive for: Normal ROM Neurologic/Psych: Positive for: Alert, Oriented - ECG O2 Sat by Pulse Oximetry: 100 Medical Decision Making Medical Decision Making: Discussed f/u with ENT. Disposition - Clinical Impression Clinical Impression: Cerumen impaction - Patient ED Disposition Is Patient to be Admitted: No - Disposition Referrals: [facility] [Outside] Edgar Nicholas MD [Staff Provider] - Disposition: Routine/Home Disposition Time: 15:21 Condition: STABLE Prescriptions: Carbamide Peroxide [Debrox Ear Drops] 10 drop .ROUTE BID #1 bottle Instructions: Ear Wax Impaction
== END 2017-10-06 15:50 | disposition home or self-care (01) ==
LOC: SUPCPDRO 14:12 → H.ER 14:12
DX: H61.21 Impacted cerumen, right ear (principal); Z86.59 Personal history of other mental and behavioral disorders

== ENCOUNTER 2018-02-28 15:25 | Emergency (ER) | payer MEDICAID, OTHER ==
[2018-02-28 15:25] VITALS: BMI 30.5
[2018-02-28 15:34] VITALS: BP 112/67; RESP 16; O2SAT 99
--- NOTE | 2018-02-28 15:59 | ED PDOC ---
HPI: Influenza Time Seen by Provider: 02/28/18 15:34 Chief Complaint: Flu-like Symptoms Chief Complaint (Provider): Flu-like Symptoms History Per: Patient Exam Limitations: no limitations Symptoms include: fever, headache, bodyaches, sore throat. denies: cough, vomiting, diarrhea, chest pain Sick Contacts (Context): Family Member(s) (daughter with influenza) Additional complaint(s):: Patient is a 28 year old female who reports fever, onset this morning (Tmax 102.3, oral), associated with sore throat, body aches, and headaches. She reports she has a daughter at home, who was diagnosed with the flu this week. Patient took 1,000 mg Tylenol at 1430 today. Otherwise: (+) fever, (+) body aches, (+) headache, (+) sore throat, (+) sick contacts, (-) SOB, (-) chest jatinder n, (-) N/V/D, (-) abdominal pain, (-) rash (-) cough, (-) flank pain, (-) urinary symptoms, (-) recent travel. PMD: [facility] LMP: February 01 Past Medical History Reviewed: Historical Data, Nursing Documentation, Vital Signs Vital Signs: Last Vital Signs Temp 99.1 F 02/28/18 15:30 Pulse 119 H 02/28/18 15:30 Resp 16 02/28/18 15:30 BP 112/67 02/28/18 15:30 Pulse Ox 99 02/28/18 15:30 - Medical History PMH: Anxiety, Depression, Pneumonia Other PMH: tonsillitis - Surgical History Surgical History: (x2) Other surgeries: Tubal ligation. abdominal laparoscopy - Family History Family History: States: Unknown Family Hx - Living Arrangements Living Arrangements: With Family - Home Medications Home Medications: Ambulatory Orders Medication Instructions Recorded Ibuprofen [Motrin Tab] 800 mg PO Q8 06/13/17 RX: Amoxicillin 500 mg PO BID #14 tablet 08/12/17 Carbamide Peroxide [Debrox Ear 10 drop .ROUTE BID #1 bottle 10/06/17 Drops] Acetaminophen [Acetaminophen 8 650 mg PO Q8 PRN #21 tablet.er 02/28/18 Hour] Oseltamivir Phosphate [Tamiflu] 75 mg PO BID #10 capsule 02/28/18 RX: Ibuprofen [Motrin Tab] 800 mg PO Q8 PRN #21 tab 02/28/18 - Allergies Allergies/Adverse Reactions: Allergies Allergy/AdvReac Type Severity Reaction Status Date / Time No Known Allergies Allergy Verified 06/13/17 06:32 Review of Systems ROS Statement: Except As Marked, All Systems Reviewed And Found Negative Constitutional: Positive for: Fever ENT: Positive for: Throat Pain Cardiovascular: Negative for: Chest Pain Respiratory: Negative for: Cough Gastrointestinal: Negative for: Vomiting, Diarrhea Genitourinary Female: Negative for: Dysuria, Frequency, Incontinence, Hematuria Musculoskeletal: Positive for: Other (body ache) Neurological: Positive for: Headache Physical Exam - Reviewed Nursing Documentation Reviewed: Yes Vital Signs Reviewed: Yes - Physical Exam Comments: GENERAL APPEARANCE: Patient is awake, alert, oriented x 3, resting comfortably in no acute distress. SKIN: Warm, dry; (-) cyanosis, (-) rash. EYES: (-) conjunctival pallor, (-) scleral icterus, (-) conjunctival hemorrhage. ENMT: TMs: (-) bulging (-) erythema. Airway patent: (-) stridor. Pharynx: clear, uvula midline (+) erythema, (-) exudate (+) 3+ hypertrophy. Nares patent (-) rhinorrhea. NECK: Supple, FROM (-) tenderness, (-) stiffness, (-) meningismus, (-) lymphadenopathy. ABDOMEN AND GI: Soft; (-) tenderness, (-) guarding (-) mass (-) CVA tenderness. EXTREMITIES: (-) deformity NEURO AND PSYCH: Mental status as above; (-) focal findings. Gait: steady. Speech: clear. (-) facial asymmetry (-) aphasia. Medical Decision Making Medical Decision Making: Time: 15:40 Impression: fever and body aches, probable influenza Plan: -- test --Motrin 800 mg PO --Throat culture --Rapid strep group A antigen --Influenza A B 1558 Urine test: negative. 1630 Rapid Strep: Negative Influenza: Negative Tamiflu 75mg PO ordered in light of high clinical suspicion for influenza given symptoms and sick contacts at home. Repeat temp: 99.5 Repeat HR: 92 1655 On re-evaluation, patient reports improvement of symptoms. On exam, patient remains AAOx3, in no acute distress. Vitals stable. Lab/Diagnostic results d/w the patient in [facility] detail. Diagnosis of fever, body aches, sore throat, probable influenza d/w the patient. Based on history, exam and diagnostic results, plan will be for outpatient follow up. Patient instructed to follow-up with pmd / referral provided / the clinic in 1- 2 days without fail. Advised to take medication as prescribed. Return to the emergency room at any time for any new or worsening symptoms. Patient states she fully agrees with and understands discharge instructions. States that she agrees with the plan and disposition. Verbalized and repeated discharge instructions and plan. I have given the patient opportunity to ask any additional questions. Scribe Attestation: Documented by Evert Landeros, acting as a scribe for Aaliyah Read Provider Scribe Attestation: All medical record entries made by the Scribe were at my direction and personally dictated by me. I have reviewed the chart and agree that the record accurately reflects my personal performance of the history, physical exam, medical decision making, and the department course for this patient. I have also personally directed, reviewed, and agree with the discharge instructions and disposition. - ECG O2 Sat by Pulse Oximetry: 99 (RA) Pulse Ox Interpretation: Normal Disposition - Clinical Impression Clinical Impression: Influenza, Body aches, Headache, Sore throat, Fever - Patient ED Disposition Is Patient to be Admitted: No Counseled Patient/Family Regarding: Studies Performed, Diagnosis, Need For Followup, Rx Given - Disposition Referrals: [facility] [Outside] Disposition: Routine/Home Disposition Time: 16:55 Condition: STABLE Additional Instructions: The emergency medical care you received today was directed at your acute symptoms. If you were prescribed any medication, please fill it and take as directed. It may take several days for your symptoms to resolve. Return to the Emergency Department if your symptoms worsen, do not improve, or if you have any other problems. Please contact your doctor in 2 days for re-evaluation and follow up / or call one of the physicians/clinics you have been referred to that are listed on the Patient Visit Information form that is included in your discharge packet. Bring any paperwork you were given at discharge with you along with any medications you are taking to your follow up visit. Our treatment cannot replace ongoing medical care by a primary care provider (PCP) outside of the emergency department. Prescriptions: Acetaminophen [Acetaminophen 8 Hour] 650 mg PO Q8 PRN #21 tablet.er PRN Reason: Fever >100.4 F RX: Ibuprofen [Motrin Tab] 800 mg PO Q8 PRN #21 tab PRN Reason: Fever >100.4 F Oseltamivir Phosphate [Tamiflu] 75 mg PO BID #10 capsule Instructions: Sore Throat in Adults, Flu, Adult (DC), Headache, Adult (DC), Fever, Adult (DC), When to Worry About a Fever Forms: [facility] (Angolan) Print Language: GIBRALTARIAN - POA Present On Arrival: None Results - Lab Results Lab Results: 02/28/18 02/28/18 16:03 16:03 Influenza Typ A,B (EIA) Negative for flu a/b Grp A Beta Strep Ag Negative
[2018-02-28 16:38] VITALS: PULSE 92; TEMP 99.5
== END 2018-02-28 17:18 | disposition home or self-care (01) ==
LOC: H.ER 15:25
DX: J11.1 Influenza due to unidentified influenza virus with other respiratory manifestations (principal); M79.10 Myalgia, unspecified site; R51 Headache; J02.9 Acute pharyngitis, unspecified; R50.9 Fever, unspecified; Z86.59 Personal history of other mental and behavioral disorders

== ENCOUNTER 2018-04-23 09:07 | Emergency (ER) | payer OTHER ==
[2018-04-23 09:24] VITALS: BMI 29.8
[2018-04-23] MEDS ORDERED: Sodium Chloride 0.9% 1,000 ML IV STA (09:58)
--- NOTE | 2018-04-23 10:02 | ED PDOC ---
HPI: Back Time Seen by Provider: 04/23/18 09:43 Chief Complaint (Nursing): Fever History Per: Patient Onset/Duration Of Symptoms: Days (7) Current Symptoms Are (Timing): Still Present Quality Of Discomfort: Cramping Severity: Moderate Previous Symptoms: Back Pain Associated Symptoms: None Additional Complaint(s): Bilat back pain L>R x 1 weeks. Assoc with dysuria, subjective fever and bodyaches. Feels nauseous but denies vomiting or diarrhea. Past Medical History Vital Signs: Last Vital Signs Temp 98.4 F 04/23/18 09:25 Pulse 118 H 04/23/18 09:25 Resp 20 04/23/18 09:25 BP 118/74 04/23/18 09:25 Pulse Ox 98 04/23/18 09:25 - Medical History PMH: Anxiety, Depression, Pneumonia Denies: Chronic Kidney Disease - Surgical History Surgical History: (x2) - Family History Family History: States: Unknown Family Hx - Home Medications Home Medications: Ambulatory Orders Medication Instructions Recorded Ibuprofen [Motrin Tab] 800 mg PO Q8 06/13/17 Amoxicillin 500 mg PO BID #14 tablet 08/12/17 Carbamide Peroxide [Debrox Ear 10 drop .ROUTE BID #1 bottle 10/06/17 Drops] Acetaminophen [Acetaminophen 8 650 mg PO Q8 PRN #21 tablet.er 02/28/18 Hour] Ibuprofen [Motrin Tab] 800 mg PO Q8 PRN #21 tab 02/28/18 Oseltamivir Phosphate [Tamiflu] 75 mg PO BID #10 capsule 02/28/18 Sulfamethoxazole/Trimethoprim 1 tab PO BID #20 tab 04/23/18 [Bactrim DS 800 mg-160 mg] traMADol [Ultram] 50 mg PO Q8 #10 tab 04/23/18 - Allergies Allergies/Adverse Reactions: Allergies Allergy/AdvReac Type Severity Reaction Status Date / Time No Known Allergies Allergy Verified 04/23/18 09:25 Review of Systems ROS Statement: Except As Marked, All Systems Reviewed And Found Negative Constitutional: Positive for: Fever Gastrointestinal: Positive for: Nausea Genitourinary Female: Positive for: Dysuria, Frequency Musculoskeletal: Positive for: Back Pain Physical Exam - Reviewed Nursing Documentation Reviewed: Yes Vital Signs Reviewed: Yes - Physical Exam Appears: Positive for: Non-toxic, No Acute Distress Head Exam: Positive for: ATRAUMATIC, NORMAL INSPECTION, NORMOCEPHALIC Skin: Positive for: Normal Color, Warm, DRY Eye Exam: Positive for: EOMI, Normal appearance, PERRL ENT: Positive for: Normal ENT Inspection Neck: Positive for: Normal, Painless ROM Cardiovascular/Chest: Positive for: Regular Rate, Rhythm Respiratory: Positive for: CNT, Normal Breath Sounds Gastrointestinal/Abdominal: Positive for: Normal Exam, Soft. Negative for: Tenderness Back: Positive for: Normal Inspection. Negative for: L CVA Tenderness Rectal: Positive for: Other (Pimple, no fluctuance left perirectal area) Extremity: Positive for: Normal ROM Neurologic/Psych: Positive for: Alert, Oriented - Laboratory Results Result Diagrams: 04/23/18 09:45 04/23/18 09:45 - ECG O2 Sat by Pulse Oximetry: 98 - Progress Re-evaluation Time: 13:01 Condition: Improved (HR improved to 95) Medical Decision Making Medical Decision Making: labs, IV fluids and IV Toradol CT Abdomen/Pelvis w/o contrast 1132 CT A/P FINDINGS: LOWER THORAX: Unremarkable. LIVER: Normal size, contour and attenuation. Nonspecific 5 mm low-density lesion in the inferior right hepatic lobe. Nonspecific 7 mm lesion in dome of liver. These nonspecific low-density masses are unchanged compared to the [facility]. GALLBLADDER AND BILE DUCTS: Unremarkable. PANCREAS: Unremarkable. No gross lesion or ductal dilatation. SPLEEN: Unremarkable. ADRENALS: Unremarkable. No mass. KIDNEYS AND URETERS: No mass, calculus or hydronephrosis. No hydroureter or ureteral calculus. VASCULATURE: Unremarkable. No aortic aneurysm. No aortic atherosclerotic calcification or mural plaque present. BOWEL: Unremarkable. No obstruction. No gross mural thickening. APPENDIX: Unremarkable. Normal appendix. PERITONEUM: Small amount of fluid in cul-de-sac common nonspecific. No generalized ascites. LYMPH NODES: Unremarkable. No enlarged lymph nodes. BLADDER: Unremarkable. REPRODUCTIVE: Normal uterus. Probable 1.7 cm left ovarian cyst/follicle. BONES: No acute fracture. OTHER FINDINGS: None. IMPRESSION: No evidence of urinary calculus or urinary tract obstruction. Small amount of fluid in cul-de-sac is nonspecific. Incidental 1.7 cm left ovarian cyst/follicle. No additional abnormality. 1150 Labs reviewed, no clinically significant abnormalities noted. 1225 UA ordered Disposition - Clinical Impression Clinical Impression: UTI (urinary tract infection) - Patient ED Disposition Is Patient to be Admitted: No Counseled Patient/Family Regarding: Studies Performed, Diagnosis, Need For Followup, Rx Given - Disposition Referrals: [facility] [Outside] Disposition: Routine/Home Disposition Time: 13:01 Condition: FAIR Prescriptions: Sulfamethoxazole/Trimethoprim [Bactrim DS 800 mg-160 mg] 1 tab PO BID #20 tab traMADol [Ultram] 50 mg PO Q8 #10 tab Instructions: Urinary Tract Infections in Adults Forms: [facility] (Vietnamese)
[2018-04-23 10:14] LABS: BASO % 0.1 % (0.0-2.0); EOS % 0.5 % (0.0-4.0); HEMOGLOBIN 12.6 g/dL (12.0-16.0); LYMPH # 0.8 K/uL (1.0-4.3); MEAN CELL VOLUME 89.8 fl (81.0-99.0); MEAN CORPUSCULAR HEMOGLOBIN 30.3 pg (27.0-31.0); MEAN CORPUSCULAR HGB CONC 33.7 g/dL (33.0-37.0); MONO # 0.6 K/uL (0.0-0.8); MONO % 7.8 % (0.0-10.0); NEUT # 6.2 K/uL (1.8-7.0); NEUT % 81.6 % (50.0-75.0); NRBC % 0.1 % (0.0-0.0); RBC 4.16 Mil/uL (3.80-5.20); RED CELL DISTRIBUTION WIDTH 13.5 % (11.5-14.5); WHITE BLOOD COUNT 7.6 K/uL (4.8-10.8)
[2018-04-23 10:43] LABS: ALB/GLOB RATIO 1.1 (1.0-2.1); ALBUMIN 4.2 g/dL (3.5-5.0); BLOOD UREA NITROGEN 11 mg/dl (7-17); CALCIUM 8.2 mg/dL (8.4-10.2); GFR NON-AFRICAN AMERICAN > 60
[2018-04-23 10:49] LABS: ALT/SGPT 23 U/L (9-52); AST/SGOT 29 U/L (14-36)
--- NOTE | 2018-04-23 11:25 | CT ---
Date of service: 04/23/2018 PROCEDURE: CT Abdomen and Pelvis without intravenous contrast HISTORY: r/o kidney stone COMPARISON: 06/03/2017 TECHNIQUE: Without contrast.. Contrast dose: 0 Radiation dose: Total exam DLP = 797.73 mGy-cm. This CT exam was performed using one or more of the following dose reduction techniques: Automated exposure control, adjustment of the mA and/or kV according to patient size, and/or use of iterative reconstruction technique. FINDINGS: LOWER THORAX: Unremarkable. LIVER: Normal size, contour and attenuation. Nonspecific 5 mm low-density lesion in the inferior right hepatic lobe. Nonspecific 7 mm lesion in dome of liver. These nonspecific low-density masses are unchanged compared to the prior examination. GALLBLADDER AND BILE DUCTS: Unremarkable. PANCREAS: Unremarkable. No gross lesion or ductal dilatation. SPLEEN: Unremarkable. ADRENALS: Unremarkable. No mass. KIDNEYS AND URETERS: No mass, calculus or hydronephrosis. No hydroureter or ureteral calculus. VASCULATURE: Unremarkable. No aortic aneurysm. No aortic atherosclerotic calcification or mural plaque present. BOWEL: Unremarkable. No obstruction. No gross mural thickening. APPENDIX: Unremarkable. Normal appendix. PERITONEUM: Small amount of fluid in cul-de-sac common nonspecific. No generalized ascites. LYMPH NODES: Unremarkable. No enlarged lymph nodes. BLADDER: Unremarkable. REPRODUCTIVE: Normal uterus. Probable 1.7 cm left ovarian cyst/follicle. BONES: No acute fracture. OTHER FINDINGS: None. IMPRESSION: No evidence of urinary calculus or urinary tract obstruction. Small amount of fluid in cul-de-sac is nonspecific. Incidental 1.7 cm left ovarian cyst/follicle. No additional abnormality.
[2018-04-23 12:47] LABS: SQUAMOUS EPITHIAL 18 /hpf (0-5); URINE BACTERIA RARE (<OCC); URINE BILIRUBIN SMALL (NEGATIVE); URINE BLOOD NEGATIVE (NEGATIVE); URINE CLARITY CLOUDY (Clear); URINE COLOR YELLOW (YELLOW); URINE GLUCOSE (UA) NEG (NEGATIVE); URINE LEUKOCYTE ESTERASE SMALL Leu/uL (Negative); URINE PROTEIN NEGATIVE (NEGATIVE); URINE UROBILINOGEN 0.2-1.0 mg/dL (0.2-1.0)
[2018-04-23 13:12] VITALS: BP 100/62; PULSE 69; RESP 18; TEMP 98.3; O2SAT 99
== END 2018-04-23 13:19 | disposition home or self-care (01) ==
LOC: H.ER 09:07
DX: N39.0 Urinary tract infection, site not specified (principal); Z86.59 Personal history of other mental and behavioral disorders
CPT/HCPCS: 74176; 80053; 81003; 81025; 85025; 87040; 87086; 87804; 96361; 96374; 99285; J1885; J7030

== ENCOUNTER 2018-06-05 10:30 | Emergency (ER) | payer OTHER ==
[2018-06-05 10:45] VITALS: BMI 30.5
[2018-06-05 10:46] VITALS: RESP 17
--- NOTE | 2018-06-05 11:54 | ED PDOC ---
HPI: Female Pain Time Seen by Provider: 06/05/18 11:07 Chief Complaint (Nursing): Female Genitourinary Chief Complaint (Provider): c/o dysuria History Per: Patient Quality Of Discomfort: Burning Additional Complaint(s): 28 yo female, hx of recent UTIs, presents to ED with 2 days of burning on urination. no back pain, n/v or fevers. Abnormal Vaginal Bleeding: No Last Menstral Period: 1 week ago Past Medical History Reviewed: Historical Data, Nursing Documentation, Vital Signs Vital Signs: Last Vital Signs Temp 99 F 06/05/18 10:45 Pulse 86 06/05/18 10:45 Resp 17 06/05/18 10:45 BP 97/66 L 06/05/18 10:45 Pulse Ox 96 06/05/18 10:45 JAH Report Viewed: Yes - Medical History PMH: No Chronic Diseases, Anxiety, Depression, Pneumonia Denies: Chronic Kidney Disease - Surgical History Surgical History: No Surg Hx, (x2) - Family History Family History: States: No Known Family Hx, Unknown Family Hx - Living Arrangements Living Arrangements: With Family - Home Medications Home Medications: Ambulatory Orders Medication Instructions Recorded Ibuprofen [Motrin Tab] 800 mg PO Q8 06/13/17 Amoxicillin 500 mg PO BID #14 tablet 08/12/17 Carbamide Peroxide [Debrox Ear 10 drop .ROUTE BID #1 bottle 10/06/17 Drops] Acetaminophen [Acetaminophen 8 650 mg PO Q8 PRN #21 tablet.er 02/28/18 Hour] Ibuprofen [Motrin Tab] 800 mg PO Q8 PRN #21 tab 02/28/18 Oseltamivir Phosphate [Tamiflu] 75 mg PO BID #10 capsule 02/28/18 Sulfamethoxazole/Trimethoprim 1 tab PO BID #20 tab 04/23/18 [Bactrim DS 800 mg-160 mg] traMADol [Ultram] 50 mg PO Q8 #10 tab 04/23/18 Ciprofloxacin/Ciprofloxa HCl 500 mg PO BID #6 ter 06/05/18 [Cipro Xr] - Allergies Allergies/Adverse Reactions: Allergies Allergy/AdvReac Type Severity Reaction Status Date / Time No Known Allergies Allergy Verified 04/23/18 09:25 Review of Systems ROS Statement: Except As Marked, All Systems Reviewed And Found Negative Genitourinary Female: Positive for: Dysuria, Frequency (c/o burnign and frequency on urination.) Physical Exam - Physical Exam Appears: Positive for: Well, No Acute Distress Cardiovascular/Chest: Positive for: Regular Rate, Rhythm Respiratory: Positive for: Normal Breath Sounds Gastrointestinal/Abdominal: Positive for: Normal Exam (soft, nt, nd, no hsm, (+)bs times 4, no cva tenderness) - Laboratory Results Urine POC: Negative Urine dip results: Negative for: Leukocyte Esterase, Blood, Nitrate, Ketones, Glucose, Bilirubin, Protein - ECG O2 Sat by Pulse Oximetry: 96 Medical Decision Making Medical Decision Making: pt. will be treated for a uti based on symptoms Procedures - Time-Out Type of Procedure: none Disposition - Clinical Impression Clinical Impression: UTI (urinary tract infection) - Patient ED Disposition Is Patient to be Admitted: No - Disposition Disposition: Routine/Home Disposition Time: 12:22 Condition: STABLE Prescriptions: Ciprofloxacin/Ciprofloxa HCl [Cipro Xr] 500 mg PO BID #6 ter Instructions: Urinary Tract Infection, Adult (DC) Forms: [facility] ED School/Work Excuse
[2018-06-05 12:48] VITALS: BP 103/63; PULSE 81; TEMP 98.3; O2SAT 100
== END 2018-06-05 12:40 | disposition home or self-care (01) ==
LOC: H.ER 10:30
DX: N39.0 Urinary tract infection, site not specified (principal)